=== PATIENT | male | born 1955 | race African-American/Black ===

== ENCOUNTER → 2018-08-01 | Day surgery (SDC) | payer MEDICARE ==
[2018-07-31 11:34] LABS: BASOPHILS # (AUTO) 0.1 (0.0-0.1); BASOPHILS % 0.5 % (0.0-1.0); EOSINOPHILS # (AUTO) 0.8 (0.0-0.4); EOSINOPHILS % 6.1 % (0.0-6.0); HEMATOCRIT 39.2 % (38.2-49.6); HEMOGLOBIN 12.9 g/dL (14.0-18.0); LYMPHOCYTES # (AUTO) 2.9 (1.0-3.2); LYMPHOCYTES % 23.2 % (18.0-39.1); MEAN CORPUSCULAR HEMOGLOBIN 27.3 pg (28-32); MEAN CORPUSCULAR HGB CONC 32.9 g/dL (31-35); MEAN CORPUSCULAR VOLUME 83.1 fL (81-99); MONOCYTES # (AUTO) 1.1 (0.2-0.8); MONOCYTES % 8.4 % (4.4-11.3); NEUTROPHILS # (AUTO) 7.8 (2.1-6.9); NEUTROPHILS % 61.5 % (38.7-80.0); PLATELET COUNT 410 x10e3/uL (140-360); RED BLOOD COUNT 4.72 x10e6/uL (4.3-5.7); RED CELL DISTRIBUTION WIDTH 14.5 % (11.7-14.4)
[2018-07-31 11:41] LABS: INR 0.85; PROTHROMBIN TIME 12.4 seconds (11.9-14.5)
[2018-07-31 11:51] LABS: ALBUMIN/GLOBULIN RATIO 1.1 (0.8-2.0); ANION GAP 16.8 mmol/L (8-16); CALCIUM 9.7 mg/dL (8.4-10.2); CHOL/HDL RATIO 4.9 (3.9-4.7); CREATININE, SERUM 1.58 mg/dL (0.72-1.25); POTASSIUM 4.8 mmol/L (3.5-5.1)
[~2018-08-01] VITALS: Ht 182.9 cm; Wt 129.3 kg
[2018-08-01] VITALS (8 sets, daily range): BP systolic 118–160; BP diastolic 64–90
[~2018-08-01] MED LIST: ALLOPURINOL300 MG PO; ALPRAZOLAM 0.5 MG TAB ONE; CLOPIDOGREL75 MG PO; DIPHENHYDRAMINE HCL 25 MG CAP ONE; FENTANYL CITRATE/PF 100MCG/2 ML INJ ONE; FUROSEMIDE40 MG PO; GABAPENTIN400 MG PO; GLIPIZIDE ER5 MG PO; HEPARIN SOD/SOD CHLORIDE 2,000 ML ONE; HUMALOG100 UNIT/3 SC; IOPAMIDOL 300MG/ML 100 ML INFUS..BTL IV ONE; LIDOCAINE HCL 2% LOCAL 20 ML VIAL ONE; LISINOPRIL2.5 MG PO; METOLAZONE5 MG PO; METOPROLOL PO; MIDAZOLAM HCL 2 MG/2 ML VIAL ONE; NIFEDIPINE ER30 M1 PO; POTASSIUM CHLO10 ME1 PO; PRAVASTATIN SOD10 MG PO; SODIUM CHLORIDE 0.9% 1000ML 1,000 ML ONE; TYLENOL WITH C1 EACH PO; Trulicity SC; VITAMIN D32000 UNIT PO
--- NOTE | 2018-08-03 08:49 | Operative Report ---
DATE OF PROCEDURE: August 01, 2018 INDICATIONS: Peripheral arterial disease. PROCEDURES PERFORMED 1. Abdominal aorta catheter placement. 2. Abdominal aortogram with runoff to bilateral femoral arteries. Access obtained in the right femoral artery. A 6-Bolivian sheath was placed. Abdominal aortogram with runoff was performed. Moderate peripheral arterial disease, 50% in-stent restenosis of the left femoral artery stent, right femoral artery 50% stenosis. Aorta and iliac had mild disease. Pedal vessels demonstrate 2-vessel runoff to both feet. Right groin repaired using Mynx closure device. Patient discharged home same day. COMPLICATIONS: None. BLOOD LOSS: 5 mL. RECOMMENDATIONS: Medical therapy. Job#: [id number] FANY
--- OUTSIDE RECORDS SUMMARY | 2018-08-15 09:30 | XMS REPORT | Continuity of Care Document ---
Author Author [facility] Interface Address Unknown Phone Unavailable Problems Problem Status Onset Date Classification Date Reported Comments Source Fall Active 07/26/2018 Problem 07/28/2018 [facility] Other intervertebral disc degeneration, lumbar region Active Problem 06/07/2018 Jamar Bloom Encounter for other administrative examinations Active Problem 06/07/2018 Jamar Bloom Other spondylosis with radiculopathy, lumbosacral region Active Problem 06/07/2018 Jamar Bloom Other intervertebral disc displacement, lumbar region Active Problem 06/07/2018 Jamar Bloom Other spondylosis with radiculopathy, lumbar region Active Problem 06/07/2018 Jamar Bloom Idiopathic chronic gout, left ankle and foot, without tophus Active Problem 06/07/2018 Jamar Bloom Other specified peripheral vascular diseases Active Problem 06/07/2018 Jamar Bloom Atherosclerotic heart disease of [place] coronary artery without angina pectoris Active Problem 06/07/2018 Jamar Bloom Hypertensive chronic kidney disease with stage 1 through stage 4 chronic kidney disease, or unspecified chronic kidney disease Active Problem 06/07/2018 Jamar Bloom Major depressive disorder, single episode, mild Active Problem 06/07/2018 Jamar Bloom Classical phenylketonuria Active Problem 06/07/2018 Jamar Bloom Left leg cellulitis Active Diagnosis 06/07/2018 Jamar Bloom Type 2 diabetes mellitus with unspecified complications Active Problem 06/07/2018 Jamar Bloom Elevated CK Active Diagnosis 06/07/2018 Jamar Bloom Vitamin D deficiency Active Diagnosis 06/07/2018 Jamar Bloom High cholesterol Active Problem 06/07/2018 Jamar Bloom Morbid obesity due to excess calories Active Problem 06/07/2018 Jamar Bloom Other obesity due to excess calories Active Problem 06/07/2018 Jamar Bloom Type 2 diabetes mellitus with other diabetic neurological complication Active Problem 06/07/2018 Jamar Bloom Type 2 diabetes mellitus with diabetic polyneuropathy Active Problem 06/07/2018 Jamar Bloom Type 2 diabetes mellitus with hyperglycemia Active Problem 06/07/2018 Jamar Bloom Type 2 diabetes mellitus with diabetic peripheral angiopathy without gangrene Active Problem 06/07/2018 Jamar Bloom Type 2 diabetes mellitus with diabetic chronic kidney disease Active Problem 06/07/2018 Jamar Bloom Eye problems Active Problem 06/07/2018 Jamar Bloom Type 2 diabetes mellitus with other diabetic ophthalmic complication Active Problem 06/07/2018 Jamar Bloom Type 2 diabetes mellitus with other diabetic kidney complication Active Problem 06/07/2018 Jamar Bloom Acquired absence of portion of lung Active Problem 06/07/2018 Jamar Bloom 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 Active Diagnosis 06/07/2018 Jamar Bloom Type 1 diabetes mellitus with peripheral angiopathy without gangrene Active Diagnosis 06/07/2018 Jamar Bloom Spondylosis of lumbar region without myelopathy or radiculopathy Active Problem 06/07/2018 Jamar Bloom Cardiomyopathy, unspecified type Active Problem 06/07/2018 Jamar Bloom Hypertensive heart and chronic kidney disease with heart failure and stage 1 through stage 4 chronic kidney disease, or chronic kidney disease Active Problem 06/07/2018 Jamar Bloom Gout of ankle, unspecified cause, unspecified chronicity, unspecified laterality Active Problem 06/07/2018 Jamar Bloom Acute systolic heart failure Active Problem 06/07/2018 Jamar Bloom Other congestive heart failure Active Problem 06/07/2018 Jamar Bloom Erectile dysfunction, unspecified erectile dysfunction type Active Problem 06/07/2018 Jamar Bloom Atherosclerosis of [place] artery of both lower extremities with intermittent claudication Active Problem 06/07/2018 Jamar Bloom Other cervical disc degeneration at C4-C5 level Active Problem 06/07/2018 Jamar Bloom Other chronic pain Active Diagnosis 06/07/2018 Jamar Bloom Fatigue, unspecified type Active Problem 06/07/2018 Jamar Bloom Vitamin B 12 deficiency Active Diagnosis 06/07/2018 Jamar Bloom Neuropathy Active Diagnosis 06/07/2018 Jamar Bloom Diabetic cataract Active Problem 06/07/2018 Jamar Bloom Chronic pain syndrome Active Diagnosis 06/07/2018 Jamar Bloom Chronic kidney disease, stage II Active Diagnosis 06/07/2018 Jamar Bloom Obstructive sleep apnea Active Diagnosis 06/07/2018 Jamar Bloom Generalized anxiety disorder Active Diagnosis 06/07/2018 Jamar Bloom Chronic obstructive pulmonary disease with acute exacerbation Active Diagnosis 06/07/2018 Jamar Bloom Mixed hyperlipidemia Active Diagnosis 06/07/2018 Jamar Bloom Chronic systolic congestive heart failure Active Diagnosis 06/07/2018 Jamar Bloom Chronic diastolic heart failure Active Diagnosis 06/07/2018 Jamar Bloom Acute diastolic heart failure Active Problem 06/07/2018 Jamar Bloom Essential hypertension Active Diagnosis 06/07/2018 Jamar Bloom Depression, unspecified depression type Active Problem 06/07/2018 Jamar Bloom Age-related nuclear cataract of both eyes Active Problem 06/07/2018 Jamar Bloom Arteriosclerotic cardiovascular disease Active Problem 06/07/2018 Jamar Bloom Peripheral vascular angioplasty status with implants and grafts Active Diagnosis 06/07/2018 Jamar Bloom Abnormality of gait and mobility Active Problem 06/07/2018 Jamar Bloom MCC current use of insulin Active Problem 06/07/2018 Jamar Bloom Hyperlipidemia, unspecified hyperlipidemia type Active Problem 06/07/2018 Jamar Bloom PVD Active Problem 06/07/2018 Jamar Bloom Type 2 diabetes mellitus with diabetic peripheral angiopathy without gangrene, unspecified 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 insulin use Active Diagnosis 06/07/2018 Jamar Bloom Personal history of other venous thrombosis and embolism Active Diagnosis 06/07/2018 Jamar Bloom Diastolic congestive heart failure, unspecified HF chronicity Active Diagnosis 06/07/2018 Jamar Bloom Type 2 diabetes mellitus with hyperglycemia, unspecified whether senior living insulin use Active Diagnosis 06/07/2018 Jamar Bloom MCC current use of oral hypoglycemic drug Active Diagnosis 06/07/2018 Jamar Bloom Personal history of nicotine dependence Active Diagnosis 06/07/2018 Jamar Bloom Acute gout of ankle, unspecified cause, unspecified laterality Active Diagnosis 06/07/2018 Jamar Bloom Type 2 diabetes mellitus without complication, unspecified 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 insulin use Active Diagnosis 06/07/2018 Jamar Bloom Type 2 diabetes mellitus with diabetic neuropathy, unspecified whether senior living insulin use Active Diagnosis 06/07/2018 Jamar Bloom Spinal stenosis of lumbar region without neurogenic claudication Active Diagnosis 06/07/2018 Jamar Bloom Osteoarthritis of multiple joints, unspecified osteoarthritis type Active Diagnosis 06/07/2018 Jamar Bloom Acute idiopathic gout, unspecified site Active Diagnosis 06/07/2018 Jamar Bloom History of falling Active Diagnosis 06/07/2018 Jamar Bloom Right-sided heart failure, unspecified HF chronicity Active Diagnosis 06/07/2018 Jamar Bloom Atherosclerosis of [place] artery of both lower extremities, with unspecified presence of clinical manifestation Active Diagnosis 06/07/2018 Jamar Bloom Intervertebral disc disorder with radiculopathy of lumbar region Active Diagnosis 06/07/2018 Jamar Bloom Heart failure, unspecified HF chronicity, unspecified heart failure type Active Diagnosis 06/07/2018 Jamar Bloom Medications Medication Details Route Status Patient Instructions Ordering Provider Order Date Source Glucotrol XL 1 tablet Orally Active 10 mg Orally Once a day with a meal Buxbaum 06/05/2018 Jamar Bloom Keflex 1 capsule Orally Active 500 mg Orally every 12 hrs Buxbaum 06/05/2018 Jamar Bloom Vitamin D3 1 capsule Orally Active 2000 UNIT Orally Once a day Buxbaum 06/05/2018 Jamar Bloom Pravachol 1 tablet Orally Active 10 mg Orally Once a day Buxbaum 06/05/2018 Jamar Bloom Metformin HCl 1 tablet with meals Orally Active 1000 MG Orally Twice a day Buxbaum Jamar Bloom NIFEdipine ER 1 tablet on an empty stomach Orally Active 60 MG Orally Once a day Buxbaum Jamar Bloom Metolazone 1 tablet Orally Active 10 MG Orally Once a day Buxbaum Jamar Bloom Gabapentin 1 capsule Orally Active 400 MG Orally four times a day (qid) Buxbaum Jamar Bloom Metoprolol Succinate ER 1 tablet Orally Active 50 MG Orally Once a day Buxbaum Jamar Bloom Atorvastatin Calcium 1 tablet Orally Active 20 MG Orally Once a day Buxbaum Jamar Ayersaum Humalog as directed Subcutaneous Active 100 UNIT/ML Subcutaneous inject 15 units under the skin TID Buxbaum Jamar Liceamarimar Clopidogrel Bisulfate 1 tablet Orally Active 75 MG Orally Once a day Buxbigorm Jamar Ruedaxbaum Colchicine 1 tablet Orally Active 0.6 MG Orally Once a day Buxbaum Jamar Oquendo Buxbaum Lisinopril 1 tablet Orally Active 5 MG Orally Once a day Buxbaum Jamar Jere Buxbaum Acetaminophen-Codeine #4 1 tablet as needed Orally Active 300- 60 MG Orally every 8 hrs for pain Buxbaum Jamar Ruedaxbaumarimar Furosemide 1 tablet Orally Active 40 mg Orally three times a day (tid) Buxbaum Jamar Jere Buxbaum Trulicity not defined Subcutaneous Active 1.5 MG/0.5ML Subcutaneous once a week Buxbaum Jamar Ruedaxbaum Allopurinol 1 tablet Orally Active 300 MG Orally Once a day Buxbigorm Jamar Ruedaxbaum Potassium Chloride Jolie ER 1 tablet with food Orally Active 10 MEQ Orally Twice a day Buxbaum Jamar Ayersaum Allergies, Adverse Reactions, Alerts Substance Category Reaction Severity Reaction type Status Date Reported Comments Source N.K.D.A. Adverse Reaction Info Not Available Adverse Reaction Active 06/05/2018 Jamar Jere Liceamarimar Immunizations Immunization Date Given Site Status Last Updated Comments Source Results Order Name Results Value Reference Range Date Interpretation Comments Source 12 LEAD EKG 12 LEAD EKG FOR [facility]

Test Date:2018-07-26
Pat Name: CIARRA CREWS Department:
:
Gender: MTechnician:
:1955 Requested By:
Order Number:Antonietta DURAN: Nixon Martinez
Measurements
IntervalsAxis
Rate: 89 P:66
VT: 186QRS:-29
QRSD: 84 T:74
QT: 335
QTc:409
Interpretive Statements
SINUS RHYTHM WITH VENTRICULAR TRIGEMINY
LEFT ATRIAL ENLARGEMENT [-0.15mV P WAVE IN V1/V2]
BORDERLINE LEFT AXIS DEVIATION [QRS AXIS < -20]
NONSPECIFIC T-WAVE ABNORMALITY
INFERIOR WA, LIKELY OLD
POOR R WAVE PROGRESSION
Electronically Signed On 07-27-18 08:37:10 CDT by Nixon Martinez 07/27/2018 [facility] XRAY PELVIS 1 VIEW <p>IMPRESSION:No acute abnormality.</p><p> </p><p>This [facility] radiology report is a preliminary resident dictation until</p><p>finalized by an attending.Changes to this preliminary report may occur</p><p>in an additional preliminary or finalized version.</p><p> </p><p>Dictated By: Josué Garza MD, 07/26/2018 2:01 PM</p><p> </p><p>I have reviewed the study and agree with the findings in this report.</p><p> </p><p>Signed By: Shelly Wilson MD, 07/26/2018 3:15 PM</p><p> </p> IMPRESSION:No acute abnormality. This [facility] radiology report is a preliminary resident dictation until finalized by an attending.Changes to this preliminary report may occur in an additional preliminary or finalized version. Dictated By: Josué Garza MD, 07/26/2018 2:01 PM I have reviewed the study and agree with the findings in this report. Signed By: Shelly Wilson MD, 07/26/2018 3:15 PM 07/26/2018 [facility] XRAY PELVIS 1 VIEW <p>EXAM: XR PELVIS 1 VIEW</p><p> </p><p>DATE:07/26/2018 1:51 PM </p><p> </p><p>INDICATION: fall. Fall, initial encounter </p><p> </p&g t;<p>COMPARISON: None</p><p> </p><p>TECHNIQUE:Frontal pelvis</p><p> </p><p>DISCUSSION: No acute fracture or malalignment is identified. No soft</ p><p>tissue abnormality is identified.</p><p> </p> EXAM: XR PELVIS 1 VIEW DATE:07/26/2018 1:51 PM INDICATION: fall. Fall, initial encounter COMPARISON: None TECHNIQUE:Frontal pelvis DISCUSSION: No acute fracture or malalignment is identified. No soft tissue abnormality is identified. 07/26/2018 [facility] XRAY PELVIS 1 VIEW <p styleCode="header">Interface, Rad/Mammog In - 07/26/2018 3:20 PM CDT</p><p><span>EXAM: XR PELVIS 1 VIEW</span>

<span>DATE: 07/26/2018 1:51 PM </span>

<span>INDICATION: fall. Fall, initial encounter </span>

<span>COMPARISON: None</span>

<span>TECHNIQUE: Frontal pelvis</span>

<span>DISCUSSION: No acute fracture or malalignment is identified. No soft</span>
<span>tissue abnormality is identified.</span>

<span>IMPRESSION</span>
<span>IMPRESSION: No acute abnormality.</span>

<span>This [facility] radiology report is a preliminary resident dictation until</span>
<span>finalized by an attending. Changes to this preliminary report may occur</span>
<span>in an additional preliminary or finalized version.</span>

<span>Dictated By: Josué Garza MD, 07/26/2018 2:01 PM</span>

<span>I have reviewed the study and agree with the findings in this report.</span>

<span>Signed By: Shelly Wilson MD, 07/26/2018 3:15 PM</span>
</p> Interface, Rad/Mammog In - 07/26/2018 3:20 PM CDT EXAM: XR PELVIS 1 VIEW DATE: 07/26/2018 1:51 PM INDICATION: fall. Fall, initial encounter COMPARISON: None TECHNIQUE: Frontal pelvis DISCUSSION: No acute fracture or malalignment is identified. No soft tissue abnormality is identified. IMPRESSION IMPRESSION: No acute abnormality. This [facility] radiology report is a preliminary resident dictation until finalized by an attending. Changes to this preliminary report may occur in an additional preliminary or finalized version. Dictated By: Josué Garza MD, 07/26/2018 2:01 PM I have reviewed the study and agree with the findings in this report. Signed By: Shelly Wilson MD, 07/26/2018 3:15 PM 07/26/2018 [facility] XRAY PELVIS 1 VIEW IMPRESSION:No acute abnormality. This [facility] radiology report is a preliminary resident dictation until finalized by an attending.Changes to this preliminary report may occur in an additional preliminary or finalized version. Dictated By: Josué Garza MD, 07/26/2018 2:01 PM I have reviewed the study and agree with the findings in this report. Signed By: Shelly Wilson MD, 07/26/2018 3:15 PM EXAM: XR PELVIS 1 VIEW DATE:07/26/2018 1:51 PM INDICATION: fall. Fall, initial encounter COMPARISON: None TECHNIQUE:Frontal pelvis DISCUSSION: No acute fracture or malalignment is identified. No soft tissue abnormality is identified. Interface, Rad/Mammog In - 07/26/2018 3:20 PM CDT EXAM: XR PELVIS 1 VIEW DATE: 07/26/2018 1:51 PM INDICATION: fall. Fall, initial encounter COMPARISON: None TECHNIQUE: Frontal pelvis DISCUSSION: No acute fracture or malalignment is identified. No soft tissue abnormality is identified. IMPRESSION IMPRESSION: No acute abnormality. This [facility] radiology report is a preliminary resident dictation until finalized by an attending. Changes to this preliminary report may occur in an additional preliminary or finalized version. Dictated By: Josué Garza MD, 07/26/2018 2:01 PM I have reviewed the study and agree with the findings in this report. Signed By: Shelly Wilson MD, 07/26/2018 3:15 PM 07/26/2018 [facility] XRAY SPINE LUMBOSACRAL AP-LAT <p>IMPRESSION:No acute abnormality. Mild degenerative change at L4-5.</p><p>Moderate degenerative change at L5- S1.</p><p> </p><p>This [facility] radiology report is a preliminary resident dictation until</p><p>finalized by an attending.Changes to this preliminary report may occur</p><p>in an additional preliminary or finalized version.</p><p> </p><p>Dictated By: Josué Garza MD, 07/26/2018 2:00 PM</p><p> </p><p>I have reviewed the study and agree with the findings in this report.</p><p> </p><p>Signed By: Shelly Wilson MD, 07/26/2018 3:15 PM</p><p> </p> IMPRESSION:No acute abnormality. Mild degenerative change at L4-5. Moderate degenerative change at L5-S1. This [facility] radiology report is a preliminary resident dictation until finalized by an attending.Changes to this preliminary report may occur in an additional preliminary or finalized version. Dictated By: Josué Garza MD, 07/26/2018 2:00 PM I have reviewed the study and agree with the findings in this report. Signed By: Shelly Wilson MD, 07/26/2018 3:15 PM 07/26/2018 [facility] XRAY SPINE LUMBOSACRAL AP-LAT <p>EXAM: XR LUMBAR SPINE 3 VIEWS</p><p> </p><p>DATE:07/26/2018 1:51 PM </p><p> </p><p>INDICATION: fall. Fall, initial encounter </p><p> </p><p>COMPARISON: None</p><p> </p><p>TECHNIQUE:AP and lateral radiographs of the lumbar spine</p><p> </p><p>FINDINGS: Normal alignment of the lumbar spine. 5 lumbar type, non- rib</p><p>bearing vertebral bodies are present. Vertebral body heights are</p><p>maintained. Multilevel intervertebral disc space narrowing, with </p><p>marginal osteophyte formation, most prominent at L4-5 and L5-S1, with</p><p>subchondral sclerosis at those levels. </p><p> </p><p>The visualized soft tissues are unremarkable. </p><p> </p> EXAM: XR LUMBAR SPINE 3 VIEWS DATE:07/26/2018 1:51 PM INDICATION: fall. Fall, initial encounter COMPARISON: None TECHNIQUE:AP and lateral radiographs of the lumbar spine FINDINGS: Normal alignment of the lumbar spine. 5 lumbar type, non-rib bearing vertebral bodies are present. Vertebral body heights are maintained. Multilevel intervertebral disc space narrowing, with marginal osteophyte formation, most prominent at L4-5 and L5-S1, with subchondral sclerosis at those levels. The visualized soft tissues are unremarkable. 07/26/2018 [facility] XRAY SPINE LUMBOSACRAL AP-LAT <p styleCode="header">Interface, Rad/Mammog In - 07/26/2018 3:20 PM CDT</p><p><span>EXAM: XR LUMBAR SPINE 3 VIEWS</span>

<span>DATE: 07/26/2018 1:51 PM </span>

<span>INDICATION: fall. Fall, initial encounter </span>

<span>COMPARISON: None</span>

<span>TECHNIQUE: AP and lateral radiographs of the lumbar spine</span>

<span>FINDINGS: Normal alignment of the lumbar spine. 5 lumbar type, non-rib</span&gt ;
<span>bearing vertebral bodies are present. Vertebral body heights are</span>
<span>maintained. Multilevel intervertebral disc space narrowing, with</span>
<span>marginal osteophyte formation, most prominent at L4-5 and L5-S1, with</span>
<span>subchondral sclerosis at those levels. </span>

<span>The visualized soft tissues are unremarkable. </span>

<span>IMPRESSION</span>
<span>IMPRESSION: No acute abnormality. Mild degenerative change at L4-5.</span>
<span>Moderate degenerative change at L5-S1.</span>

<span>This [facility] radiology report is a preliminary resident dictation until</span>
<span>finalized by an attending. Changes to this preliminary report may occur</span>
<span>in an additional preliminary or finalized version.</span>

<span>Dictated By: Josué Garza MD, 07/26/2018 2:00 PM</span>

<span>I have reviewed the study and agree with the findings in this report.</span>

<span>Signed By: Shelly Wilson MD, 07/26/2018 3:15 PM</span>
</p> Interface, Rad/Mammog In - 07/26/2018 3:20 PM CDT EXAM: XR LUMBAR SPINE 3 VIEWS DATE: 07/26/2018 1:51 PM INDICATION: fall. Fall, initial encounter COMPARISON: None TECHNIQUE: AP and lateral radiographs of the lumbar spine FINDINGS: Normal alignment of the lumbar spine. 5 lumbar type, non-rib bearing vertebral bodies are present. Vertebral body heights are maintained. Multilevel intervertebral disc space narrowing, with marginal osteophyte formation, most prominent at L4-5 and L5-S1, with subchondral sclerosis at those levels. The visualized soft tissues are unremarkable. IMPRESSION IMPRESSION: No acute abnormality. Mild degenerative change at L4-5. Moderate degenerative change at L5-S1. This [facility] radiology report is a preliminary resident dictation until finalized by an attending. Changes to this preliminary report may occur in an additional preliminary or finalized version. Dictated By: Josué Garza MD, 07/26/2018 2:00 PM I have reviewed the study and agree with the findings in this report. Signed By: Shelly Wilson MD, 07/26/2018 3:15 PM 07/26/2018 [facility] XRAY SPINE LUMBOSACRAL AP-LAT IMPRESSION:No acute abnormality. Mild degenerative change at L4-5. Moderate degenerative change at L5-S1. This [facility] radiology report is a preliminary resident dictation until finalized by an attending.Changes to this preliminary report may occur in an additional preliminary or finalized version. Dictated By: Josué Garza MD, 07/26/2018 2:00 PM I have reviewed the study and agree with the findings in this report. Signed By: Shelly Wilson MD, 07/26/2018 3:15 PM EXAM: XR LUMBAR SPINE 3 VIEWS DATE:07/26/2018 1:51 PM INDICATION: fall. Fall, initial encounter COMPARISON: None TECHNIQUE:AP and lateral radiographs of the lumbar spine FINDINGS: Normal alignment of the lumbar spine. 5 lumbar type, non-rib bearing vertebral bodies are present. Vertebral body heights are maintained. Multilevel intervertebral disc space narrowing, with marginal osteophyte formation, most prominent at L4-5 and L5-S1, with subchondral sclerosis at those levels. The visualized soft tissues are unremarkable. Interface, Rad/Mammog In - 07/26/2018 3:20 PM CDT EXAM: XR LUMBAR SPINE 3 VIEWS DATE: 07/26/2018 1:51 PM INDICATION: fall. Fall, initial encounter COMPARISON: None TECHNIQUE: AP and lateral radiographs of the lumbar spine FINDINGS: Normal alignment of the lumbar spine. 5 lumbar type, non-rib bearing vertebral bodies are present. Vertebral body heights are maintained. Multilevel intervertebral disc space narrowing, with marginal osteophyte formation, most prominent at L4-5 and L5-S1, with subchondral sclerosis at those levels. The visualized soft tissues are unremarkable. IMPRESSION IMPRESSION: No acute abnormality. Mild degenerative change at L4-5. Moderate degenerative change at L5-S1. This [facility] radiology report is a preliminary resident dictation until finalized by an attending. Changes to this preliminary report may occur in an additional preliminary or finalized version. Dictated By: Josué Garza MD, 07/26/2018 2:00 PM I have reviewed the study and agree with the findings in this report. Signed By: Shelly Wilson MD, 07/26/2018 3:15 PM 07/26/[address] [place] [address] HEAD W/O CONTRAST <p>IMPRESSION:</p><p>1.No acute brain parenchymal abnormality. No hemorrhage </p><p>2.Mild extracranial soft tissue swelling at the vertex, without</p><p>fracture of the subjacent calvarium</p><p> </p><p>Signed By: Corona Falcon MD, 07/26/2018 1:46 PM</p><p> </p> IMPRESSION: 1.No acute brain parenchymal abnormality. No hemorrhage 2.Mild extracranial soft tissue swelling at the vertex, without fracture of the subjacent calvarium Signed By: Corona Falcon MD, 07/26/2018 1:46 PM 07/26/[address] [facility] [address] HEAD W/O CONTRAST <p>EXAMINATION: CT BRAIN WITHOUT CONTRAST, CT REFORMATIONS</p><p> </p><p>DATE: 07/26/2018 </p><p> </p><p>CLINICAL INDICATION: Fall</p><p> </p><p>COMPARISON: None</p><p> </p><p>TECHNIQUE: </p><p>Multiple contiguous axial CT images of the brain are acquired. Sagittal</p><p>and coronal images are reformatted from the axial source data. Bone and</p><p>soft tissue algorithms are provided.</p><p> </p><p>DISCUSSION:</p><p>There is no hemorrhage or other injury. No edema, mass lesion, or</p><p>extra-axial collection is demonstrated. The ventricles and basal</p><p>cisterns are patent.</p><p> </p><p>There is mild extracranial soft tissue swelling at the vertex. There is</p><p>no fracture of the subjacent calvarium. The skull base is intact. There</p><p>is minimal mucosal thickening in the right maxillary antrum and left</p><p>sphenoid sinus. Otherwise, the paranasal sinuses including the mastoid</p><p>air cells are clear.</p><p> </p><p> </p><p> </p> EXAMINATION: CT BRAIN WITHOUT CONTRAST, CT REFORMATIONS DATE: 07/26/2018 CLINICAL INDICATION: Fall COMPARISON: None TECHNIQUE: Multiple contiguous axial CT images of the brain are acquired. Sagittal and coronal images are reformatted from the axial source data. Bone and soft tissue algorithms are provided. DISCUSSION: There is no hemorrhage or other injury. No edema, mass lesion, or extra-axial collection is demonstrated. The ventricles and basal cisterns are patent. There is mild extracranial soft tissue swelling at the vertex. There is no fracture of the subjacent calvarium. The skull base is intact. There is minimal mucosal thickening in the right maxillary antrum and left sphenoid sinus. Otherwise, the paranasal sinuses including the mastoid air cells are clear. 07/26/[address] [facility] [address] HEAD W/O CONTRAST <p styleCode="header">Interface, Rad/Mammog In - 07/26/2018 1:51 PM CDT</p><p><span>EXAMINATION: CT BRAIN WITHOUT CONTRAST, CT REFORMATIONS</span>

<span>DATE: 07/26/2018 </span>

<span>CLINICAL INDICATION: Fall</span>

<span>COMPARISON: None</span>

<span>TECHNIQUE: </span>
<span>Multiple contiguous axial CT images of the brain are acquired. Sagittal</span>
<span>and coronal images are reformatted from the axial source data. Bone and</span>
<span>soft tissue algorithms are provided.</span>

<span>DISCUSSION:</span>
<span>There is no hemorrhage or other injury. No edema, mass lesion, or</span>
<span>extra- axial collection is demonstrated. The ventricles and basal</span>
<span&gt ;cisterns are patent.</span>

<span>There is mild extracranial soft tissue swelling at the vertex. There is</span>
<span>no fracture of the subjacent calvarium. The skull base is intact. There</span>
<span>is minimal mucosal thickening in the right maxillary antrum and left</span>
<span>sphenoid sinus. Otherwise, the paranasal sinuses including the mastoid</span>
<span>air cells are clear.</span>

<span>IMPRESSION</span>&l t;br/><span>IMPRESSION:</span>
<span>1. No acute brain parenchymal abnormality. No hemorrhage </span>
<span>2. Mild extracranial soft tissue swelling at the vertex, without</span>
<span>fracture of the subjacent calvarium</span>

<span>Signed By: Corona Falcon MD, 07/26/2018 1:46 PM</span>
</p> G[facility]alo [place]/Mammog In - 07/26/2018 1:51 PM CDT EXAMINATION: CT BRAIN WITHOUT CONTRAST, CT REFORMATIONS DATE: 07/26/2018 CLINICAL INDICATION: Fall COMPARISON: None TECHNIQUE: Multiple contiguous axial CT images of the brain are acquired. Sagittal and coronal images are reformatted from the axial source data. Bone and soft tissue algorithms are provided. DISCUSSION: There is no hemorrhage or other injury. No edema, mass lesion, or extra-axial collection is demonstrated. The ventricles and basal cisterns are patent. There is mild extracranial soft tissue swelling at the vertex. There is no fracture of the subjacent calvarium. The skull base is intact. There is minimal mucosal thickening in the right maxillary antrum and left sphenoid sinus. Otherwise, the paranasal sinuses including the mastoid air cells are clear. IMPRESSION IMPRESSION: 1. No acute brain parenchymal abnormality. No hemorrhage 2. Mild extracranial soft tissue swelling at the vertex, without fracture of the subjacent calvarium Signed By: Corona Falcon MD, 07/26/2018 1:46 PM 07/26/[address] [facility] [address] HEAD W/O CONTRAST IMPRESSION: 1.No acute brain parenchymal abnormality. No hemorrhage 2.Mild extracranial soft tissue swelling at the vertex, without fracture of the subjacent calvarium Signed By: Corona Falcon MD, 07/26/2018 1:46 PM EXAMINATION: CT BRAIN WITHOUT CONTRAST, CT REFORMATIONS DATE: 07/26/2018 CLINICAL INDICATION: Fall COMPARISON: None TECHNIQUE: Multiple contiguous axial CT images of the brain are acquired. Sagittal and coronal images are reformatted from the axial source data. Bone and soft tissue algorithms are provided. DISCUSSION: There is no hemorrhage or other injury. No edema, mass lesion, or extra-axial collection is demonstrated. The ventricles and basal cisterns are patent. There is mild extracranial soft tissue swelling at the vertex. There is no fracture of the subjacent calvarium. The skull base is intact. There is minimal mucosal thickening in the right maxillary antrum and left sphenoid sinus. Otherwise, the paranasal sinuses including the mastoid air cells are clear. Interface, Rad/Mammog In - 07/26/2018 1:51 PM CDT EXAMINATION: CT BRAIN WITHOUT CONTRAST, CT REFORMATIONS DATE: 07/26/2018 CLINICAL INDICATION: Fall COMPARISON: None TECHNIQUE: Multiple contiguous axial CT images of the brain are acquired. Sagittal and coronal images are reformatted from the axial source data. Bone and soft tissue algorithms are provided. DISCUSSION: There is no hemorrhage or other injury. No edema, mass lesion, or extra-axial collection is demonstrated. The ventricles and basal cisterns are patent. There is mild extracranial soft tissue swelling at the vertex. There is no fracture of the subjacent calvarium. The skull base is intact. There is minimal mucosal thickening in the right maxillary antrum and left sphenoid sinus. Otherwise, the paranasal sinuses including the mastoid air cells are clear. IMPRESSION IMPRESSION: 1. No acute brain parenchymal abnormality. No hemorrhage 2. Mild extracranial soft tissue swelling at the vertex, without fracture of the subjacent calvarium Signed By: Corona Falcon MD, 07/26/2018 1:46 PM 07/26/2018 [facility] Vital Signs Vital Sign Value Date Comments Source Systolic (mm Hg) 124 07/26/2018 [facility] Diastolic (mm Hg) 76 07/26/2018 [facility] Heart Rate 76 07/26/2018 [facility] Temperature Oral (F) 36.89 Divya 07/26/2018 [facility] Respitory Rate 18 07/26/2018 [facility] Weight 287 06/05/2018 [facility] Height 72 06/05/2018 [facility] Temperature Oral (F) 97.1 F 06/05/2018 [facility] Heart Rate 87 06/05/2018 [facility] Diastolic (mm Hg) 74 06/05/2018 [facility] Systolic (mm Hg) 136 06/05/2018 [facility] Weight 286.8 05/26/2018 [facility] Height 72 05/26/2018 [facility] Temperature Oral (F) 96.9 F 05/26/2018 [facility] Heart Rate 62 05/26/2018 [facility] Diastolic (mm Hg) 84 05/26/2018 [facility] Systolic (mm Hg) 132 05/26/2018 [facility] Encounters Location Location Details Encounter Type Encounter Number Reason For Visit Attending Provider ADM Date DC Date Status Source Emergency [facility] ([id number] [id number] Fall, initial encounter Wendy Clark MD 07/26/2018 07/26/2018 [facility] Procedures Procedure Code Date Perfomer Comments Source XRAY PELVIS 1 VIEW [id number] 07/26/2018 [facility] XRAY SPINE LUMBOSACRAL AP-LAT [id number] 07/26/[address] [facility] [address] HEAD W/O CONTRAST [id number] 07/26/2018 [facility] 12 LEAD EKG [id number] 07/26/2018 [facility]
--- OUTSIDE RECORDS SUMMARY | 2018-08-15 09:30 | XMS REPORT | Clinical Summary ---
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 Role Phone PCP Unavailable Allergies Not on File Current Medications Not on file Active Problems Problem Noted Date fall07/26/2018 Encounters Date Type Specialty Care Team Description 07/26/2018 Emergency Emergency Medicine Wendy Clark MD Fall, initial encounter (Primary Dx) after 07/31/2017 Social History Tobacco Use Types Packs/Day Years Used Date Never Assessed Sex Assigned at Date Recorded Not on file Last Filed Vital Signs Vital Sign Reading Time Taken Blood Pressure 124/76 07/26/2018 6:45 PM CDT Pulse 76 07/26/2018 6:45 PM CDT Temperature 36.9 C (98.4 F) 07/26/2018 6:45 PM CDT Respiratory Rate 18 07/26/2018 6:45 PM CDT Oxygen Saturation 99% 07/26/2018 6:45 PM CDT Inhaled Oxygen - - Concentration Weight - - Height - - Body Mass Index - - Plan of Treatment Health Maintenance Due Date Last Done Comments Colorectal Cancer Scrn 2004 Annual (FIT/FOBT) Age 50 to 75 IMM Influenza Seasonal 07/31/2018Jul to December (>/=19 yrs) Procedures Procedure Name Priority Date/Time Associated Diagnosis Comments XRAY SPINE LUMBOSACRAL STAT 07/26/2018fall, initial encounter Results for this AP-LAT 1:51 PM CDT procedure are in the results section. XRAY PELVIS 1 VIEW STAT 07/26/2018fall, initial encounter Results for this 1:51 PM CDT procedure are in the results section. CT HEAD W/O CONTRAST STAT 07/26/2018fall, initial encounter Results for this 1:33 PM CDT procedure are in the results section. 12 LEAD EKG Routine 07/26/2018 Results for this 1:12 PM CDT procedure are in the results section. after 07/31/2017 Results * XRAY PELVIS 1 VIEW (07/26/2018 1:51 PM) Impressions Performed At IMPRESSION:No acute abnormality. SMS This [facility] radiology report is a preliminary resident dictation until finalized by an attending.Changes to this preliminary report may occur in an additional preliminary or finalized version. Dictated By: Josué Garza MD, 07/26/2018 2:01 PM I have reviewed the study and agree with the findings in this report. Signed By: Shelly Wilson MD, 07/26/2018 3:15 PM Narrative Performed At EXAM: XR PELVIS 1 VIEW SMS DATE:07/26/2018 1:51 PM INDICATION: fall. Fall, initial encounter COMPARISON: None TECHNIQUE:Frontal pelvis DISCUSSION: No acute fracture or malalignment is identified. No soft tissue abnormality is identified. Procedure Note Interface, Rad/Mammog In - 07/26/2018 3:20 PM CDT EXAM: XR PELVIS 1 VIEW DATE: 07/26/2018 1:51 PM INDICATION: fall. Fall, initial encounter COMPARISON: None TECHNIQUE: Frontal pelvis DISCUSSION: No acute fracture or malalignment is identified. No soft tissue abnormality is identified. IMPRESSION IMPRESSION: No acute abnormality. This [facility] radiology report is a preliminary resident dictation until finalized by an attending. Changes to this preliminary report may occur in an additional preliminary or finalized version. Dictated By: Josué Garza MD, 07/26/2018 2:01 PM I have reviewed the study and agree with the findings in this report. Signed By: Shelly Wilson MD, 07/26/2018 3:15 PM Performing Organization Address City/State/Zipcode Phone Number SMS * XRAY SPINE LUMBOSACRAL AP-LAT (07/26/2018 1:51 PM) Impressions Performed At IMPRESSION:No acute abnormality. Mild degenerative change at L4-5. SMS Moderate degenerative change at L5-S1. This [facility] radiology report is a preliminary resident dictation until finalized by an attending.Changes to this preliminary report may occur in an additional preliminary or finalized version. Dictated By: Josué Garza MD, 07/26/2018 2:00 PM I have reviewed the study and agree with the findings in this report. Signed By: Shelly Wilson MD, 07/26/2018 3:15 PM Narrative Performed At EXAM: XR LUMBAR SPINE 3 VIEWS SMS DATE:07/26/2018 1:51 PM INDICATION: fall. Fall, initial [...] levels. The visualized soft tissues are unremarkable. Procedure Note Interface, Rad/Mammog In - 07/26/2018 3:20 PM [...] L4-5. Moderate degenerative change at L5-S1. This [facility] radiology report is a preliminary resident dictation until finalized by an attending. Changes to this preliminary report may occur in an additional preliminary or finalized version. Dictated By: Josué Garza MD, 07/26/2018 2:00 PM I have reviewed the study and agree with the findings in this report. Signed By: Shelly Wilson MD, 07/26/2018 3:15 PM Performing Organization Address City/State/Zipcode Phone Number SMS * CT HEAD W/O CONTRAST (07/26/2018 1:33 PM) Impressions Performed At IMPRESSION: SMS 1.No acute brain parenchymal abnormality. No hemorrhage 2.Mild extracranial soft tissue swelling at the vertex, without fracture of the subjacent calvarium Signed By: Cornoa Falcon MD, 07/26/2018 1:46 PM Narrative Performed At EXAMINATION: CT BRAIN WITHOUT CONTRAST, CT REFORMATIONS [facility] DATE: 07/26/2018 CLINICAL INDICATION: Fall COMPARISON: None [...] including the mastoid air cells are clear. Procedure Note Interface, Rad/Mammog In - 07/26/2018 1:51 PM [...] By: Corona Falcon MD, 07/26/2018 1:46 PM Performing Organization Address City/[facility]/[employer] Phone Number [facility] * 12 LEAD EKG (07/26/2018 1:12 PM) 12 LEAD EKG FOR [facility] SMS [facility] Test Date:2018-07-26 Pat Name: CIARRA LAKEWOOD Department: Room: Gender: M Law Office Assistant: :[id number] Requested By: Order Number: Jany melara MD: Nixon Martinez Measurements Intervals [place] Rate: 89 P:66 AK: 186 QRS: -29 QRSD: 84 T:74 QT: 335 QTc:409 Interpretive Statements SINUS RHYTHM WITH VENTRICULAR TRIGEMINY LEFT ATRIAL ENLARGEMENT [-0.15mV P WAVE IN V1/V2] BORDERLINE LEFT AXIS DEVIATION [QRS AXIS < -20] NONSPECIFIC T-WAVE ABNORMALITY INFERIOR CT, LIKELY OLD POOR R WAVE PROGRESSION Electronically Signed On 07-27-18 08:37:10 CDT by Nixon Martinez Performing Organization Address City/State/Zipcode Phone Number SMS after 07/31/2017
--- OUTSIDE RECORDS SUMMARY | 2018-08-15 09:30 | XMS REPORT ---
Author Author Jamar Bloom Organization [employer] Address Unknown Phone Unavailable Care Team Providers Care Hall Clerk Name Role Phone Jamar Bloom CP Unavailable Allergies, Adverse Reactions, Alerts Substance Reaction Event Type N.K.D.A. 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8 Active Assessment Vitamin D deficiency E55.9 Active Assessment High cholesterol E78.00 Active Problem Type 2 diabetes mellitus with unspecified complications E11.8 Active Problem Morbid (severe) obesity due to excess calories E66.01 Active Problem Other obesity due to excess calories E66.09 Active Problem Type 2 diabetes mellitus with other diabetic neurological complication E11.49 Active Problem Type 2 diabetes mellitus with diabetic polyneuropathy E11.42 Active Problem Type 2 diabetes mellitus with hyperglycemia E11.65 Active Problem Type 2 diabetes mellitus with diabetic peripheral angiopathy without gangrene E11.51 Active Problem Type 2 diabetes mellitus with diabetic chronic kidney disease E11.22 Active Problem Eye problems H57.9 Active Problem 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 Active Problem Type 2 diabetes mellitus with other diabetic kidney complication E11.29 Active Problem 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 Active Problem 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 Active Problem Type 1 diabetes mellitus with peripheral angiopathy without gangrene E10.51 Active Assessment Type 2 diabetes mellitus with hyperglycemia E11.65 Active Problem Spondylosis of lumbar region without myelopathy or radiculopathy M47.816 Active Problem Cardiomyopathy, unspecified type I42.9 Active Problem Hypertensive heart and chronic kidney disease with heart failure and stage 1 through stage 4 chronic kidney disease, or chronic kidney disease I13.0 Active Problem Gout of ankle, unspecified cause, unspecified chronicity, unspecified laterality M10.9 Active Problem Acute systolic heart failure I50.21 Active Problem Other congestive heart failure I50.9 Active Problem Erectile dysfunction, unspecified erectile dysfunction type N52.9 Active Problem Atherosclerosis of [place] artery of both lower extremities with intermittent claudication I70.213 Active Problem High cholesterol E78.00 Active Problem Other cervical disc degeneration at C4-C5 level M50.321 Active Problem Other chronic pain G89.29 Active Problem Fatigue, unspecified type R53.83 Active Problem Vitamin B 12 deficiency E53.8 Active Problem Neuropathy G62.9 Active Problem Diabetic cataract E11.36 Active Problem Chronic pain syndrome G89.4 Active Problem Chronic kidney disease, stage II (mild) N18.2 Active Problem Obstructive sleep apnea G47.33 Active Problem Generalized anxiety disorder F41.1 Active Problem Chronic obstructive pulmonary disease with acute exacerbation J44.1 Active Problem Mixed hyperlipidemia E78.2 Active Problem Chronic systolic congestive heart failure I50.22 Active Problem Chronic diastolic heart failure I50.32 Active Problem Acute diastolic heart failure I50.31 Active Problem Essential hypertension I10 Active Problem Depression, unspecified depression type F32.9 Active Problem Vitamin D deficiency E55.9 Active Problem Age-related nuclear cataract of both eyes H25.13 Active Problem Arteriosclerotic cardiovascular disease I25.10 Active Problem Peripheral vascular angioplasty status with implants and grafts Z95.820 Active Problem Abnormality of gait and mobility R26.9 Active Problem 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 Active Problem Hyperlipidemia, unspecified hyperlipidemia type E78.5 Active Problem PVD (peripheral vascular disease) I73.9 Active Medications Medication Code System Code Instructions Start Date End Date Status Dosage Metformin HCl [facility] 37813699495 1000 MG Orally Twice a day Active 1 tablet with meals Glucotrol XL [facility] [address]-84 10 mg Orally Once a day with a meal Jun 05, 2018 Active 1 tablet NIFEdipine ER [facility] 92824311578 60 MG Orally Once a day Active 1 tablet on an empty stomach Metolazone ND 00830769000 10 MG Orally Once a day Active 1 tablet Keflex [facility] 69697947822 500 mg Orally every 12 hrs Jun 05, 2018 Jun 12, 2018 Active 1 capsule Gabapentin [facility] 07295851030 400 MG Orally four times a day (qid) Active 1 capsule Metoprolol Succinate ER [facility] 08463714276 50 MG Orally Once a day Active 1 tablet Atorvastatin Calcium [facility] 75795535908 20 MG Orally Once a day Active 1 tablet Humalog [facility] 79410986684 100 UNIT/ML Subcutaneous inject 15 units under the skin TID Active as directed Clopidogrel Bisulfate [facility] 78638502118 75 MG Orally Once a day Active 1 tablet Colchicine [facility] 62966412739 0.6 MG Orally Once a day Active 1 tablet Lisinopril [facility] 21730762782 5 MG Orally Once a day Active 1 tablet Acetaminophen-Codeine #4 [facility] 03147639601 300-60 MG Orally every 8 hrs for pain Active 1 tablet as needed Furosemide [facility] 83205714950 40 mg Orally three times a day (tid) Active 1 tablet Vitamin D3 [facility] 86230769128 2000 UNIT Orally Once a day Jun 05, 2018 May 31, 2019 Active 1 capsule Trulicity [facility] 00139159586 1.5 MG/0.5ML Subcutaneous once a week Active not defined Allopurinol [facility] 25643821284 300 MG Orally Once a day Active 1 tablet Potassium Chloride Jolie ER [facility] 14864041612 10 MEQ Orally Twice a day Active 1 tablet with food Pravachol [facility] [address]-22 10 mg Orally Once a day Jun 05, 2018 Active 1 tablet Vital Signs Date/Time: Jun 05, 2018 BMI 38.92 Index Weight 287 lbs Height 72 in Temperature 97.1 F Cardiac Monitoring Heart Rate 87 /min Blood Pressure Diastolic 74 mm Hg Blood Pressure Systolic 136 mm Hg Results No Known Results Summary Purpose [employer] Submission
--- OUTSIDE RECORDS SUMMARY | 2018-08-15 09:31 | XMS REPORT ---
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 Active Assessment Chronic kidney disease, stage II (mild) N18.2 Active Problem Type 2 diabetes mellitus with [...] E11.22 Active Problem Eye problems H57.9 Active Assessment Type 1 diabetes mellitus with peripheral angiopathy without gangrene E10.51 Active Problem 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 Active Assessment Chronic systolic congestive heart failure I50.22 Active Problem Type 2 diabetes mellitus with other diabetic kidney complication E11.29 Active Problem Spondylosis of lumbar region without [...] Problem Other congestive heart failure I50.9 Active Assessment Peripheral vascular angioplasty status with implants and grafts Z95.820 Active Problem Erectile dysfunction, unspecified erectile dysfunction type N52.9 Active Assessment Cardiomyopathy, unspecified type I42.9 Active Problem Atherosclerosis of [place] artery of both lower extremities with intermittent claudication I70.213 Active Assessment Type 2 diabetes mellitus with diabetic peripheral angiopathy without gangrene, 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.51 Active Problem High cholesterol E78.00 Active Assessment Personal history of other venous thrombosis and embolism Z86.718 Active Problem Other cervical disc degeneration at C4-C5 level M50.321 Active Assessment Chronic diastolic heart failure I50.32 Active Assessment Diastolic congestive heart failure, unspecified HF chronicity I50.30 Active Assessment 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 Active Assessment Chronic obstructive pulmonary disease with acute exacerbation J44.1 Active Problem Fatigue, unspecified type R53.83 Active Assessment Acute systolic heart failure I50.21 Active Assessment 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 Active Problem Chronic obstructive pulmonary disease with acute exacerbation J44.1 Active Problem Chronic systolic congestive heart failure I50.22 Active Problem Acute diastolic heart failure I50.31 Active Problem Depression, unspecified depression type F32.9 Active Problem Age-related nuclear cataract of both eyes H25.13 Active Assessment Generalized anxiety disorder F41.1 Active Problem Arteriosclerotic cardiovascular disease I25.10 Active Assessment Other specified peripheral vascular diseases I73.89 Active Problem Peripheral vascular angioplasty status with implants and grafts Z95.820 Active Assessment Mixed hyperlipidemia E78.2 Active Problem Abnormality of gait and mobility R26.9 Active Problem senior living current use of insulin Z79.4 Active Assessment Type 2 diabetes mellitus with hyperglycemia, 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.65 Active Problem Hyperlipidemia, unspecified hyperlipidemia type E78.5 Active Assessment Age-related nuclear cataract of both eyes H25.13 Active Problem PVD (peripheral vascular disease) I73.9 Active Assessment Other obesity due to excess calories E66.09 Active Assessment Obstructive sleep apnea G47.33 Active Assessment Idiopathic chronic gout, left ankle and foot, 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 Active Assessment Atherosclerosis of [place] artery of both lower extremities with intermittent claudication I70.213 Active Assessment 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.84 Active Assessment Type 2 diabetes mellitus with other diabetic kidney complication E11.29 Active Assessment Type 2 diabetes mellitus with hyperglycemia E11.65 Active Assessment Hypertensive chronic kidney disease with stage 1 through stage 4 chronic kidney disease, or unspecified chronic kidney disease I12.9 Active Assessment Hypertensive heart and chronic kidney disease with heart failure and stage 1 through stage 4 chronic kidney disease, or chronic kidney disease I13.0 Active Assessment Personal history of nicotine dependence Z87.891 Active Assessment Type 2 diabetes mellitus with unspecified complications E11.8 Active Assessment Acute gout of ankle, unspecified cause, unspecified laterality M10.9 Active Assessment Vitamin D deficiency E55.9 Active Assessment Other spondylosis with radiculopathy, lumbosacral region M47.27 Active Assessment Vitamin B 12 deficiency E53.8 Active Assessment Other chronic pain G89.29 Active Assessment Erectile dysfunction, unspecified erectile dysfunction type N52.9 Active Assessment Type 2 diabetes mellitus without complication, unspecified whether residential insulin use E11.9 Active Assessment Type 2 diabetes mellitus with diabetic neuropathy, unspecified whether residential insulin use E11.40 Active Assessment Spondylosis of lumbar region without myelopathy or radiculopathy M47.816 Active Assessment Other spondylosis with radiculopathy, lumbar region M47.26 Active Assessment Other intervertebral disc displacement, lumbar region M51.26 Active Assessment Spinal stenosis of lumbar region without neurogenic claudication M48.061 Active Assessment Depression, unspecified depression type F32.9 Active Assessment Fatigue, unspecified type R53.83 Active Assessment PVD (peripheral vascular disease) I73.9 Active Assessment 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.4 Active Assessment Essential hypertension I10 Active Assessment Neuropathy G62.9 Active Assessment Type 2 diabetes mellitus with diabetic chronic kidney disease E11.22 Active Assessment High cholesterol E78.00 Active Assessment Other congestive heart failure I50.9 Active Assessment Gout of ankle, unspecified cause, unspecified chronicity, unspecified laterality M10.9 Active Problem 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 Active Problem 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 Active Problem Type 1 diabetes mellitus with peripheral angiopathy without gangrene E10.51 Active Assessment Encounter for other administrative examinations Z02.89 Active Assessment Osteoarthritis of multiple joints, unspecified osteoarthritis type M15.9 Active Assessment Acute idiopathic gout, unspecified site M10.00 Active Assessment Hyperlipidemia, unspecified hyperlipidemia type E78.5 Active Assessment History of falling Z91.81 Active Assessment Other intervertebral disc degeneration, lumbar region M51.36 Active Assessment Other cervical disc degeneration at C4-C5 level M50.321 Active Assessment Abnormality of gait and mobility R26.9 Active Assessment Right-sided heart failure, unspecified HF chronicity I50.810 Active Assessment 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 Active Assessment Atherosclerosis of [place] artery of both lower extremities, with unspecified presence of clinical manifestation I70.203 Active Problem Other chronic pain G89.29 Active Problem Vitamin B 12 deficiency E53.8 Active Assessment Type 2 diabetes mellitus with diabetic polyneuropathy E11.42 Active Problem Neuropathy G62.9 Active Assessment Chronic pain syndrome G89.4 Active Assessment Type 2 diabetes mellitus with diabetic peripheral angiopathy without gangrene E11.51 Active Problem Diabetic cataract E11.36 Active Assessment Arteriosclerotic cardiovascular disease I25.10 Active Problem Chronic pain syndrome G89.4 Active Assessment Acute diastolic heart failure I50.31 Active Assessment Morbid (severe) obesity due to excess calories E66.01 Active Assessment Major depressive disorder, single episode, mild F32.0 Active Assessment Intervertebral disc disorder with radiculopathy of lumbar region M51.16 Active Assessment Heart failure, unspecified HF chronicity, unspecified heart failure type I50.9 Active Problem Chronic kidney disease, stage II (mild) N18.2 Active Problem Obstructive sleep apnea G47.33 Active Problem Generalized anxiety disorder F41.1 Active Problem Mixed hyperlipidemia E78.2 Active Problem Chronic diastolic heart failure I50.32 Active Problem Essential hypertension I10 Active Assessment Type 2 diabetes mellitus with other diabetic neurological complication E11.49 Active Problem Vitamin D deficiency E55.9 Active Assessment 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 Active Assessment Diabetic cataract E11.36 Active Medications Medication Code System Code Instructions Start Date End Date Status Dosage Colchicine [facility] 21592336024 0.6 MG Orally Once a day Active 1 tablet Humalog [facility] 79949533212 100 UNIT/ML Subcutaneous inject 15 units under the skin TID Active as directed Lisinopril [facility] 44365572743 5 MG Orally Once a day Active 1 tablet Metformin HCl [facility] 41063342789 1000 MG Orally Twice a day Active 1 tablet with meals Atorvastatin Calcium [facility] 26657217159 20 MG Orally Once a day Active 1 tablet Clopidogrel Bisulfate [facility] 17545316198 75 MG Orally Once a day Active 1 tablet NIFEdipine ER [facility] 33565324658 60 MG Orally Once a day Active 1 tablet on an empty stomach Allopurinol [facility] 60222082363 300 MG Orally Once a day Active 1 tablet Furosemide [facility] 95932913547 40 mg Orally three times a day (tid) Active 1 tablet Trulicity [facility] 83086782676 1.5 MG/0.5ML Subcutaneous once a week Active not defined Acetaminophen-Codeine #4 [facility] 15872717124 300-60 MG Orally every 8 hrs for pain Active 1 tablet as needed Potassium Chloride Jolie ER [facility] 59962112253 10 MEQ Orally Twice a day Active 1 tablet with food Metolazone [facility] 17087846479 10 MG Orally Once a day Active 1 tablet Metoprolol Succinate ER [facility] 70479098706 50 MG Orally Once a day Active 1 tablet Gabapentin [facility] 90337862682 400 MG Orally four times a day (qid) Active 1 capsule Vital Signs Date/Time: May 26, 2018 BMI 38.89 Index Weight 286.8 lbs Height 72 in Temperature 96.9 F Cardiac Monitoring Heart Rate 62 /min Blood Pressure Diastolic 84 mm Hg Blood Pressure Systolic 132 mm Hg Results Name Result Date Reference Range Unit Abnormality Flag Lipid Panel w/calculated LDL ----Cholesterol Total 121 20180530 ----Triglyceride 104 20180530 ----HDL Cholesterol 37 20180530 ----LDL Cholesterol 65 20180530 Hgb A1c ----Hemoglobin A1c 9.5 20180530 Summary Purpose [employer] Submission
--- OUTSIDE RECORDS SUMMARY | 2018-08-15 09:31 | XMS REPORT | Clinical Summary ---
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 after 07/27/2017 Results * XRAY PELVIS 1 VIEW (07/26/2018 1:51 PM) Impressions Performed At IMPRESSION:No acute abnormality. SMS This [facility] radiology report is a preliminary resident dictation [...] identified. IMPRESSION IMPRESSION: No acute abnormality. This [facility] radiology report is a preliminary resident dictation [...] SMS Moderate degenerative change at L5-S1. This [facility] radiology report is a preliminary resident dictation [...] L4-5. Moderate degenerative change at L5-S1. This [facility] radiology report is a preliminary resident dictation [...] By: Corona Falcon MD, 07/26/2018 1:46 PM Narrative Performed At EXAMINATION: CT BRAIN WITHOUT CONTRAST, CT REFORMATIONS [facility] DATE: 07/26/2018 CLINICAL INDICATION: Fall COMPARISON: None [...] MD, 07/26/2018 1:46 PM Performing Organization Address City/[facility]/[place] Phone Number [facility] * 12 LEAD EKG (07/26/2018 1:12 PM) 12 LEAD EKG FOR [facility] SMS [facility] Test Date:2018-07-26 Pat Name: CIARRA [employer] Department: Room: Gender: M Cross Tie Maker: :[id number] [id number] Requested By: Order Number: Jany melara MD: Nixon Martinez Measurements Intervals [place] Rate: 89 P:66 MA: 186 QRS: -29 QRSD: 84 T:74 QT: 335 QTc:409 Interpretive Statements SINUS RHYTHM WITH VENTRICULAR TRIGEMINY LEFT ATRIAL ENLARGEMENT [-0.15mV P WAVE IN V1/V2] BORDERLINE LEFT AXIS DEVIATION [QRS AXIS < -20] NONSPECIFIC T-WAVE ABNORMALITY INFERIOR MO, LIKELY OLD POOR R WAVE PROGRESSION Electronically Signed On 07-27-18 08:37:10 CDT by Nixon Martinez Performing Organization Address City/State/Zipcode Phone Number SMS after 07/27/2017
--- OUTSIDE RECORDS SUMMARY | 2018-08-15 09:31 | XMS REPORT | Clinical Summary ---
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 12 LEAD EKG Routine 07/26/2018 1:12 PM CDT after 07/25/2017 Results * XRAY PELVIS 1 VIEW (07/26/2018 1:51 PM) Impressions Performed At IMPRESSION:No acute abnormality. SMS This [facility] radiology report is a preliminary resident [...] identified. IMPRESSION IMPRESSION: No acute abnormality. This [facility] radiology report is a preliminary resident [...] SMS Moderate degenerative change at L5-S1. This [facility] radiology report is a preliminary resident [...] L4-5. Moderate degenerative change at L5-S1. This [facility] radiology report is a preliminary resident [...] EXAMINATION: CT BRAIN WITHOUT CONTRAST, CT [facility] DATE: 07/26/2018 CLINICAL INDICATION: Fall [...] of the subjacent calvarium Signed By: Corona Faclon MD, 07/26/2018 1:46 PM Performing Organization Address City/State/Zipcode Phone Number [facility] after 07/25/2017
--- OUTSIDE RECORDS SUMMARY | 2018-08-15 09:31 | XMS REPORT ---
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 Allergies, Adverse Reactions, Alerts This patient has no known allergies or adverse reactions. Medications This patient has no known medications. Encounters Start Date/Time End Date/Time Encounter Type Admission Type Attending Clinicians [facility] Facility Care Department Encounter ID 2018-07-26 13:32:55 2018-07-26 13:32:55 Emergency [facility] [id number] 2018-07-26 13:03:14 2018-07-26 13:03:14 Emergency [facility] [id number] 2018-07-26 12:40:55 2018-07-26 12:40:55 Emergency [facility] [id number]
== END | disposition home or self-care (01) ==
LOC: CATH LAB 12:39
PROVIDERS: ATTEND Internal Medicine Interventional Cardiology
DX: I70.203 Unspecified atherosclerosis of native arteries of extremities, bilateral legs (principal); Z95.820 Peripheral vascular angioplasty status with implants and grafts; I10 Essential (primary) hypertension; E11.9 Type 2 diabetes mellitus without complications; Z01.812 Encounter for preprocedural laboratory examination; Z79.4 Long term (current) use of insulin; Z79.02 Long term (current) use of antithrombotics/antiplatelets
CPT/HCPCS: 36200; 36415 ×2; 75716; 80053; 80061; 82948; 85025; 85610; C1769; J2001; J2250; J7030; Q9967; 75630; C1766